=== PATIENT | male | born 1960 ===

== ENCOUNTER 2016-08-29 15:58 | Emergency (ER) | payer OTHER ==
[2016-08-29 16:22] VITALS: PULSE 60; RESP 16; O2SAT 98
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
[2016-08-29 18:16] VITALS: BP 126/82; TEMP 97.8
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
== END 2016-08-29 18:55 | disposition home or self-care (01) ==
LOC: C.ER 15:58
DX: S16.1XXA Strain of muscle, fascia and tendon at neck level, initial encounter (principal); V89.2XXA Person injured in unspecified motor-vehicle accident, traffic, initial encounter